=== PATIENT | female | born 1975 ===

== ENCOUNTER 2022-02-06 08:15 | Inpatient (IN) | payer OTHER ==
[~2022-02-06] VITALS: Ht 157.5 cm; Wt 103.4 kg
[2022-02-06] MEDS ORDERED: LEVOTHYROXINE25 MCG PO (09:57)
[2022-02-06] MEDS ORDERED: GABAPENTIN800 M1 PO (09:57)
[2022-02-06] MEDS ORDERED: CYMBALTA20 MG PO (09:58)
[2022-02-13] MEDS ORDERED: FEXMID7.5 MG (08:25)
[2022-02-13] MEDS ORDERED: CYCLOBENZAPRINE10 MG PO (08:29)
[2022-02-13] MEDS ORDERED: SULINDAC200 MG (08:30)
== END 2022-02-14 10:00 | disposition home or self-care (01) | DRG 743 ==
LOC: OB/GYN 02-12 08:15 → SURH 02-12 08:15 → O/R 02-12 10:45 → OB/GYN 02-12 12:45
PROVIDERS: ADMIT Obstetrics & Gynecology; ATTEND Obstetrics & Gynecology
PROC: 0UT70ZZ Resection of Bilateral Fallopian Tubes, Open Approach (ICD-10-PCS; 2022-02-12)
PROC: 0UT90ZZ Resection of Uterus, Open Approach (ICD-10-PCS; principal; 2022-02-12 12:45)
DX: D25.1 Intramural leiomyoma of uterus (principal); D25.2 Subserosal leiomyoma of uterus; N80.03 Adenomyosis of the uterus; N93.8 Other specified abnormal uterine and vaginal bleeding